=== PATIENT | female | born 1980 | race African-American/Black ===

== ENCOUNTER 2018-07-06 05:40 | Emergency (ER) | payer MEDICAID ==
[~2018-07-06] VITALS: Ht 167.6 cm; Wt 86.4 kg
--- NOTE | 2018-07-06 06:03 | NUR ---
PT. C/O COUGH AND EAR PAIN X 3 DAYS GETTING PROGRESSIVELY WORSE. PT. DOES REPORT CP WHILE COUGHING BUT DENIES CP OTHERWISE; EKG WAS DONE IN TRIAGE. PT. REPORTS SHE HAS BEEN TAKING KEFLEX THAT WAS GIVEN TO HER AND "IT'S NOT HELPING". JACI BARRAZA IN TO EVAL PT. AND DISCUSS POC. CALL LIGHT IN REACH. CONTINUOUS PULSE OX, B/P, AND HEART MONITORS APPLIED.
--- NOTE | 2018-07-06 07:06 | NUR ---
bedside report from JULIO Salvador, pt care assumed at this time. pt in bed, NAD, awaiting recheck, ASHLEY.
[2018-07-06 07:16] VITALS: BP 120/60
== END 2018-07-06 07:18 | disposition home or self-care (01) ==
LOC: ED 07:12
DX: H65.03 Acute serous otitis media, bilateral (principal); J20.8 Acute bronchitis due to other specified organisms; J00 Acute nasopharyngitis [common cold]; F17.200 Nicotine dependence, unspecified, uncomplicated
CPT/HCPCS: 71046; 93005; 99283

== ENCOUNTER 2018-10-12 04:45 | Emergency (ER) | payer MEDICAID ==
[~2018-10-12] VITALS: Ht 165.1 cm; Wt 80.6 kg
[2018-10-12 06:31] VITALS: BP 102/45
== END 2018-10-12 06:48 | disposition home or self-care (01) ==
LOC: ED 06:32
DX: H20.012 Primary iridocyclitis, left eye (principal)
CPT/HCPCS: 70486; 99284

== ENCOUNTER 2020-01-23 05:55 | Emergency (ER) | payer MEDICAID ==
[~2020-01-23] VITALS: Ht 167.6 cm; Wt 92.2 kg
--- NOTE | 2020-01-23 06:30 | NUR ---
Patient comes in with complaints of cough, running nose, right eye swollen. Patient stated that it started 4 days ago, and just wants to make sure she doesn't have covid since her has health issues. Patient 97% on RA
--- NOTE | 2020-01-23 06:52 | NUR ---
REPORT TAKEN FROM JULIO MOORE. CARE ASSUMED. PATIENT ARRIVED RUNNY EYES, NOSE, COUGH CONGESTION. IN BED/ISOLATION.
--- NOTE | 2020-01-23 07:16 | NUR ---
XRAY IN ROOM.
[2020-01-23 07:59] VITALS: BP 123/78
== END 2020-01-23 08:10 | disposition home or self-care (01) ==
LOC: ED 07:53
DX: J18.0 Bronchopneumonia, unspecified organism (principal); Z20.828 Contact with and (suspected) exposure to other viral communicable diseases; H01.001 Unspecified blepharitis right upper eyelid; R06.02 Shortness of breath
CPT/HCPCS: 71045; 87635; 99284

== ENCOUNTER 2020-06-20 22:07 | Emergency (ER) | payer SELFPAY ==
[~2020-06-20] VITALS: Ht 167.6 cm; Wt 87.9 kg
[2020-06-20] MEDS ORDERED: ACETAMINOPHEN 500 MG TABLET PO ONE (23:00)
[2020-06-20] MEDS ORDERED: KETOROLAC 30 MG/1 ML IM ONE (23:00)
[2020-06-20 23:21] LABS: ANION GAP 6 mmol/L (5-15); CALCIUM 8.4 mg/dL (8.5-10.1); CHLORIDE 109 mmol/L (98-107); CREATININE 1.04 mg/dL (0.55-1.02)
[2020-06-20 23:22] LABS: ALANINE AMINOTRANSFERASE 21 U/L (12-78); ALBUMIN 3.3 g/dL (3.4-5.0); BASOPHILS % (AUTO) 1 % (0-1); EOSINOPHILS % (AUTO) 0 % (1-7); LYMPHOCYTES % (AUTO) 21 % (22-44); MEAN CORPUSCULAR HEMOGLOBIN 22.7 pg (27.0-34.8); MEAN PLATELET VOLUME 9.1 fL (7.4-10.4); MONOCYTES % (AUTO) 19 % (2-9); NEUTROPHILS % (AUTO) 59 % (42-75); PLATELET COUNT 231 x10^3/uL (130-400); RED BLOOD COUNT 4.18 x10^6/uL (3.82-5.3); RED CELL DISTRIBUTION WIDTH 17.7 % (9.6-15.2)
[2020-06-20 23:23] LABS: MD NO
[2020-06-20 23:26] LABS: ALKALINE PHOSPHATASE 54 U/L (45-117); BILIRUBIN,TOTAL 0.4 mg/dL (0.2-1.0); TOTAL PROTEIN 6.9 g/dL (6.4-8.2)
[2020-06-20] MEDS ORDERED: KETOROLAC 30 MG/1 ML ONE (23:44)
[2020-06-20] MEDS ORDERED: ACETAMINOPHEN 500 MG TABLET ONE (23:49)
[2020-06-20 23:53] LABS: MICROSCOPIC AUTO
[2020-06-21 00:34] VITALS: BP 110/60
== END 2020-06-21 00:36 | disposition home or self-care (01) ==
LOC: ED 06-21 00:15
DX: D50.0 Iron deficiency anemia secondary to blood loss (chronic) (principal); B37.3 Candidiasis of vulva and vagina; M79.10 Myalgia, unspecified site; F17.210 Nicotine dependence, cigarettes, uncomplicated
CPT/HCPCS: 36415; 80053; 81001; 84703; 85025; 87086; 96372; 99283; 99406; J1885